=== PATIENT | female | born 1935 | race Caucasian/White ===

== ENCOUNTER 2018-02-04 13:18 | Outpatient (CLI) | payer MEDICARE | END 2018-02-04 13:19 | disposition home or self-care (01) | PROVIDERS: ATTEND Family Medicine | DX: R07.89 Other chest pain (principal) | CPT/HCPCS: 93017 ==

== ENCOUNTER 2018-02-15 08:43 | Outpatient (CLI) | payer MEDICARE ==
--- NOTE | 2018-02-15 11:50 | RAD ---
UPPER GI: HISTORY: Epigastric pain and dysphagia. EXPOSURE: 3.8 minutes of fluoroscopic time. 1453.3 mGy. FINDINGS: A double contrast upper GI was performed with air and barium. Esophageal motility is slightly delaye d without focal stricture or mucosal abnormality. The contrast passes through the gastroesophageal junction and into the stomach without difficulty. N o hiatal hernia is seen. The stomach is normal in size and appearance without a focal abnormality. No intrinsic mucosal lesio n is seen in the stomach. No extrinsic compression is seen on the stomach. The duodenum is normal i n appearance. No gastroesophageal reflux is seen during the examination. IMPRESSION: Presbyesophagus; otherwise, unremarkable examination. POS: [facility]
== END 2018-02-15 08:44 | disposition home or self-care (01) ==
LOC: RAD 08:43
PROVIDERS: ATTEND Surgery
DX: R10.13 Epigastric pain (principal); R13.10 Dysphagia, unspecified; K22.8 Other specified diseases of esophagus
CPT/HCPCS: 74247

== ENCOUNTER 2018-02-22 11:48 | Day surgery (SDC) | payer MEDICARE ==
[2018-02-19 11:12] VITALS: BMI 25.0
[2018-02-22 12:55] LABS: #Basophils 0.1 thou/uL (0.0-0.2); #Eosinphils 0.1 thou/uL (0.0-0.7); #Lymphocytes 1.7 thou/uL (1.20-3.40); #Monocytes 0.4 thou/uL (0.11-0.59); #Neutrophils 3.2 thou/uL (1.40-6.50); %Eosinophils 2.1 % (0.0-10.0); %Lymphocytes 31.4 % (21.0-51.0); %Monocytes 7.4 % (0.0-10.0); Hemoglobin 13.8 g/dL (12.0-16.0); Mean Corpuscular HGB CONC 33.8 g/dL (32.0-36.0); Mean Corpuscular Hemoglobin 32.8 pg (27.0-31.0); Mean Corpuscular Volume 97.1 fL (78.0-98.0); Mean Platelet Volume 9.4 fL (7.4-10.4); Platelet Count 161 thou/uL (130-400); RBC Distribution Width 11.2 % (11.5-14.5); Red Blood Cell (RBC) Count 4.22 mill/uL (4.20-5.40); White Blood Cell (WBC) Count 5.4 thou/uL (4.8-10.8)
[2018-02-22] MEDS ORDERED: CEFAZOLIN/Water 2 GM/20 ML SYRINGE ONE (12:58)
[2018-02-22 13:17] LABS: ALT (SGPT) 14 U/L (8-55); AST (SGOT) 21 U/L (5-34); Albumin 4.3 g/dL (3.4-4.8); Alkaline Phosphatase 43 U/L (40-150); Anion Gap 11 mmol/L (10-20); BUN (Urea Nitrogen) 17 mg/dL (9.8-20.1); Bilirubin, Total 0.8 mg/dL (0.2-1.2); Calc. Creatinine Clearance 60 mL/min (70-130); Calcium 10.1 mg/dL (7.8-10.44); Carbon Dioxide 25 mmol/L (23-31); Chloride 107 mmol/L (98-107); Estimated GFR-MDRD 71; Globulin 2.6 g/dL (2.4-3.5); Glucose 89 mg/dL (83-110); Potassium 3.7 mmol/L (3.5-5.1); Protein, Total 6.9 g/dL (6.0-8.3); Sodium 139 mmol/L (136-145)
[2018-02-22] MEDS ORDERED: Bupivacaine HCl 0.25%/Epi 0.0005/PF 10 ML VIAL FS ONE (13:58)
[2018-02-22] MEDS ORDERED: Fentanyl 100 MCG/2 ML VIAL ONE ×2 (14:02→15:24)
[2018-02-22] MEDS ORDERED: ePHEDrine/0.9% NaCl/PF SYRINGE 50 mg/10 ml ONE (14:25)
[2018-02-22] MEDS ORDERED: PROPOFOL 200 MG/20 ML VIAL ONE (14:25)
[2018-02-22] MEDS ORDERED: Dexamethasone 20 MG/5 ML VIAL ONE (14:25)
[2018-02-22] MEDS ORDERED: Lidocaine 1% PF 5 ML VIAL ONE (14:25)
[2018-02-22] MEDS ORDERED: Glycopyrrolate 0.2 MG/ML 5 ML SYRINGE ONE ×2 (14:25)
[2018-02-22] MEDS ORDERED: HYDROcodone/Acetaminophen 5/325 mg Tablet ONE (16:54)
--- NOTE | 2018-02-26 18:51 | PDOC.OP ---
Operative Note - Operative Note Operative Note: PROCEDURE: Laparoscopic cholecystectomy SURGEON: Sukhjinder Rob M.D. DATE OF PROCEDURE: 02/22/2018 PREOPERATIVE DIAGNOSIS: Cholelithiasis and cholecystitis POSTOPERATIVE DIAGNOSIS: Cholelithiasis and cholecystitis HISTORY: Patient with symptomatic cholelithiasis for which laparoscopic cholecystectomy was recommended. No bile duct dilatation or elevated LFTs were present. FINDINGS: Elongated white walled gallbladder containing gallstones. Chronic- appearing omental adhesions. PROCEDURE IN DETAIL: After informed consent was obtained and appropriate preoperative antibiotics were administered, the patient was taken to the operating room and placed in the supine position and general endotracheal anesthesia was administered. The stomach was decompressed with an OG tube and the abdomen was prepped and draped in standard sterile fashion. Local anesthesia was infused to the skin and subcutaneous tissues at the umbilical level. A transverse skin incision was made. The fascia was elevated and a Veress needle was placed into the abdominal cavity without difficulty. Opening pressure was less than 5 and carbon dioxide gas easily insufflated to an intra- abdominal pressure of 15, which the patient tolerated well. The Veress needle was withdrawn and a [place] port advanced under direct vision. The abdominal cavity was carefully examined. There was no evidence of Veress needle or of trocar injury. Local anesthesia was infused to the skin and subcutaneous tissues at the epigastric, right upper quadrant, and right lateral abdominal sites and trocars were placed under direct vision of the laparoscope. The fundus of the gallbladder was grasped and retracted superiorly. Some minimal omental adhesions were stripped inferiorly off of the gallbladder exposing the infundibulum. The infundibulum was grasped and retracted laterally. The serosa was stripped inferiorly at the level of the neck of the gallbladder exposing the cystic duct and artery which were traced clearly to their insertion in the gallbladder. Critical view of safety was obtained and the cystic duct and artery were clipped and divided between clips. The gallbladder was then dissected free of the gallbladder bed using hook electrocautery. Prior to complete removal of the gallbladder from the gallbladder bed, the area of the cystic duct and artery stumps was examined. The clips were in good position completely across these structures and there was no bleeding and no leakage of bile. The gallbladder was then placed into an EndoCatch bag and drawn out through the epigastric incision. The epigastric trocar was replaced and the operative site easily irrigated to clear. There was no significant bleeding or spillage of bile. The epigastric trocar was removed and the fascia closed under direct laparoscopic vision with a 0 Vicryl suture on a GraNee needle in a figure -of-eight manner with excellent technical result. The right upper quadrant and right lateral abdominal trocars were removed and hemostasis verified. Carbon dioxide gas was allowed to desufflate through the umbilical trocar which was then removed. The skin incisions were closed with 4-0 subcuticular Monocryl sutures and Dermabond dressings were placed. The patient was extubated and taken to the recovery room in good condition. There were no complications. ESTIMATED BLOOD LOSS: Minimal. SPECIMEN : Gallbladder and contents.
== END 2018-02-22 18:10 | disposition home or self-care (01) ==
LOC: SDC 11:48
PROVIDERS: ATTEND Surgery
PROC: 0FT44ZZ Resection of Gallbladder, Percutaneous Endoscopic Approach (ICD-10-PCS; principal; 2018-02-22)
DX: K80.10 Calculus of gallbladder with chronic cholecystitis without obstruction (principal); I10 Essential (primary) hypertension; Z79.899 Other long term (current) drug therapy
CPT/HCPCS: 80053; 85025; 88304; 96374; J1100; J2001; J2704; J3010

== ENCOUNTER 2018-09-07 11:38 | Outpatient (CLI) | payer MEDICARE ==
[2018-09-07 12:53] LABS: #Eosinphils 0.2 thou/uL (0.0-0.7); #Lymphocytes 2.1 thou/uL (1.20-3.40); #Monocytes 0.6 thou/uL (0.11-0.59); #Neutrophils 3.9 thou/uL (1.40-6.50); %Basophils 0.5 % (0.0-1.0); %Lymphocytes 30.8 % (21.0-51.0); %Monocytes 9.2 % (0.0-10.0); %Neutrophils 56.5 % (42.0-75.0); Hemoglobin 14.5 g/dL (12.0-16.0); Mean Corpuscular HGB CONC 32.8 g/dL (32.0-36.0); Mean Corpuscular Hemoglobin 32.3 pg (27.0-31.0); Mean Corpuscular Volume 98.7 fL (78.0-98.0); Mean Platelet Volume 9.1 fL (7.4-10.4); Platelet Count 194 thou/uL (130-400); RBC Distribution Width 11.5 % (11.5-14.5); Red Blood Cell (RBC) Count 4.48 mill/uL (4.20-5.40); White Blood Cell (WBC) Count 6.9 thou/uL (4.8-10.8)
[2018-09-07 12:58] LABS: Prothrombin Time 13.1 SEC (12.0-14.7)
[2018-09-07 13:10] LABS: WBC/HPF 0-3 HPF (0-3)
[2018-09-07 13:11] LABS: Bacteria/HPF Rare-Few HPF (None Seen); Hyaline Casts/LPF 0-3 HYALINE CAST LPF (0-3 Hyaline)
[2018-09-07 13:20] LABS: Anion Gap 10 mmol/L (10-20); BUN (Urea Nitrogen) 23 mg/dL (9.8-20.1); Calc. Creatinine Clearance 0 mL/min (70-130); Calcium 10.6 mg/dL (7.8-10.44); Carbon Dioxide 27 mmol/L (23-31); Chloride 106 mmol/L (98-107); Estimated GFR-MDRD 79; Glucose 83 mg/dL (83-110); Potassium 4.4 mmol/L (3.5-5.1); Sodium 139 mmol/L (136-145)
== END 2018-09-07 11:39 | disposition home or self-care (01) ==
LOC: LABBT 11:38
PROVIDERS: ATTEND Orthopaedic Surgery
DX: Z01.818 Encounter for other preprocedural examination (principal); M17.0 Bilateral primary osteoarthritis of knee
CPT/HCPCS: 80048; 81015; 85025; 85610; 86850; 86900; 86901; 87081; 93005; 93010

== ENCOUNTER 2018-09-13 05:31 | Inpatient (IN) | payer MEDICARE ==
[2018-09-13] MEDS ORDERED: Tranexamic Acid 1,000 MG/10 ML VIAL ONE ×2 (06:03→09:36)
[2018-09-13] MEDS ORDERED: CEFAZOLIN 2 GM/50 ML BAG ONE (06:03)
[2018-09-13] MEDS ORDERED: Lidocaine 1.5% w/Epi 1:200K 30 ML VIAL (Epid Use) ONE (06:19)
[2018-09-13] MEDS ORDERED: Fentanyl 100 MCG/2 ML VIAL ONE ×4 (06:19→10:12)
[2018-09-13] MEDS ORDERED: Midazolam HCl 2 mg/2 ml Vial ONE (06:19)
[2018-09-13] MEDS ORDERED: Bupivacaine PF 0.5% 30 ML VIAL ONE (06:28)
[2018-09-13] MEDS ORDERED: methylPREDNISolone Acetate 40 mg/ml Vial ONE (06:28)
[2018-09-13] MEDS ORDERED: Lidocaine 1% (PF) 30 ML VIAL ONE (06:28)
[2018-09-13] MEDS ORDERED: traMADol HCl 50 MG TAB PO PRN (07:18)
[2018-09-13] MEDS ORDERED: Ondansetron PF 4 MG/2 ML Vial IVP PRN ×2 (07:18→09:03)
[2018-09-13] MEDS ORDERED: Zolpidem Tartrate 5 MG TAB PO PRN (07:18)
[2018-09-13] MEDS ORDERED: Promethazine HCl 25 MG/ML VIAL IM PRN ×3 (07:18→09:10)
[2018-09-13] MEDS ORDERED: Ropivacaine HCl/PF 250 ML in Premix Bag 1 BAG NERVE BLCK SCH (07:18)
[2018-09-13] MEDS ORDERED: Fentanyl 100 MCG/2 ML VIAL SLOW IVP PRN (07:19)
[2018-09-13] MEDS ORDERED: Acetaminophen 325 MG TAB PO PRN (09:03)
[2018-09-13] MEDS ORDERED: Ondansetron HCl/PF 4 MG/2 ML Vial IVP PRN (09:10)
[2018-09-13] MEDS ORDERED: PACU-Morphine 4MG/ML VIAL SLOW IVP PRN (09:10)
[2018-09-13] MEDS ORDERED: HYDROmorphone 2 MG/ML VIAL SLOW IVP PRN (09:10)
[2018-09-13] MEDS ORDERED: Promethazine HCl 25 MG/ML VIAL SLOW IVP PRN (09:10)
[2018-09-13] MEDS ORDERED: CEFAZOLIN/Water 2 GM/20 ML SYRINGE SLOW IVP SCH (09:15)
[2018-09-13] MEDS ORDERED: Tranexamic Acid 1,000 MG in Sodium Chloride 0.9% 100 ML IVPB SCH (09:15)
--- NOTE | 2018-09-13 09:28 | OP ---
DATE OF PROCEDURE: 09/13/2018 METERS SUPERINTENDENT: Mario Calvert PA-C PREOPERATIVE DIAGNOSIS: Bilateral knee arthritis, left worse than right. POSTOPERATIVE DIAGNOSIS: Bilateral knee arthritis, left worse than right. PROCEDURES PERFORMED: 1. Left total knee replacement using [employer] pinless navigation. 2. Right knee corticosteroid injection. ANESTHESIA: General anesthetic. BLOOD LOSS: Minimal. COMPLICATIONS: None. DISPOSITION: She did go to Recovery Room in stable condition. IMPLANTS: To the left knee, triathlon total knee system, we used a size 4 cruciate retaining femur, we used a size 4 primary baseplate on the tibia, we used a 4 x 13 CS X3 tibial insert and a 29 x 9 asymmetric X3 patella. INDICATIONS: This is an 83-year-old female, who has had bilateral knee arthritic pain for years and at this time, wished to have her knee replaced. DESCRIPTION OF PROCEDURE: After all appropriate consent forms were explained and signed, she was taken back to the operative time and at this time was given a general anesthetic. Once the level of anesthesia was appropriate, we cleaned the right knee off with alcohol and injected 80 mg of Depo-Medrol with local. Band-Aid was applied. We then turned our attention to the left lower extremity. Once the level of anesthesia was appropriate, a well-padded tourniquet was placed on the left leg, and the leg was then prepped and draped in standard surgical fashion. The limb was exsanguinated and tourniquet taken up to 300 mmHg. Midline incision was made with a 10 blade down through the skin and subcutaneous tissue. Bovie electrocautery was used to coagulate any brisk venous bleeding. A new blade was used to make a medial parapatellar arthrotomy. Small subperiosteal release was performed medially and excess fat pad was removed. The knee was flexed up to gain access to the femur. The femur was navigated and distal femoral resection was made. Epicondylar access was used to align our sizing jig and this was pinned in place. We sized our femur to be a 4. 4:1 cutting block was applied and pinned. Anterior and posterior chamfer cuts were then made. We navigated out our proximal tibia and made our proximal tibial resection. Spreaders were used to remove any posterior osteophytes off the back of the femur as well as remaining meniscal tissue. A long alignment yann was then used to achieve correct rotation of our tibial baseplate and a size 4 primary baseplate on the tibia was chosen. This was pinned in place. We trialed the polyethylene and a 4 x 13 CS X3 tibial polyethylene gave us full extension and good stability throughout range of motion. Two towel clips and a saw were used to cut our patella. Three lug nuts were drilled and a 29 x 9 asymmetric X3 patella was trialed which sat nicely in the trochlear groove. We then drilled our femur and punched our tibia. All components were removed. The knee was thoroughly irrigated and dried. Cement was mixed into the cement gun on the back table. Components were then placed. The knee was held out in full extension until the cement had dried. All excess bone cement was removed. Multiple #2 Vicryl stitches as well as a Quill were used to close our extensor mechanism. 0 Quill followed by a running Monoderm was then used to close the skin. Surgicel glue was then used on the skin. Once this had dried, soft tissue dressing was applied to the limb, tourniquet was let down, and the toes pinked up nicely. The patient was then awakened and taken to the recovery room in stable condition. All counts were correct at the end of the case. The patient did receive preoperative IV antibiotics. The patient was injected with Exparel for postoperative pain relief. Job ID: [id number]
[2018-09-13] MEDS ORDERED: Acetaminophen 1,000 MG in Premix Bag 1 BAG IVPB SCH (10:15)
[2018-09-13 11:08] VITALS: BMI 24.3
[2018-09-13] MEDS ORDERED: Ondansetron ODT 4 MG TAB PO PRN (12:01)
[2018-09-13] MEDS ORDERED: Cepastat Lozenges 1 LOZ PO PRN (12:01)
[2018-09-13] MEDS ORDERED: Sodium Chloride 0.65% Nasal 44 ML BOT EA NARE PRN (12:01)
[2018-09-13] MEDS ORDERED: hydrALAZINE 20 MG/ML VIAL SLOW IVP PRN (12:01)
[2018-09-13] MEDS ORDERED: Eucerin (Mineral Oil/Petrolatum,White) 30 gm Jar TOP PRN (12:01)
[2018-09-13] MEDS: Sodium Chloride 0.9% 1,000 ML IV SCH ×2 (12:01→16:16)
[2018-09-13] MEDS ORDERED: Artificial Tears 18 DROP/0.9 ML EA EYE PRN (12:01)
[2018-09-13] MEDS ORDERED: Diabetic Tussin 200 MG/10 ML UDCUP PO PRN (12:01)
[2018-09-13] MEDS: Ketorolac Tromethamine 30 MG/ML VIAL IVP SCH ×3 (12:03→23:32)
--- NOTE | 2018-09-13 12:04 | PDOC.PN ---
- Subjective Encounter Start Date: 09/14/18 (SEEN ON 09/14/18) Encounter Start Time: 15:15 -: old records requested/rev Patient seen and examined. No new complaints. No overnight events - Objective Resuscitation Status - Order Detail: 09/13/18 12:01 Resuscitation Status Routine Resuscitation Status: FULL: Full Resuscitation MAR Reviewed: Yes Vital Signs & Weight: Vital Signs (12 hours) Temp Pulse Resp BP Pulse Ox 09/13/18 10:50 97.3 F L 54 L 16 129/72 99 Weight Weight 146 lb Result Diagrams: 09/14/18 04:19 Phys Exam - Physical Examination Constitutional: NAD HEENT: PERRLA, moist MMs, sclera anicteric Neck: no JVD, supple Respiratory: no wheezing, no rales, no rhonchi Cardiovascular: RRR, no significant murmur, no rub Gastrointestinal: soft, non-tender, no distention, positive bowel sounds Musculoskeletal: no edema, pulses present Neurological: non-focal, normal sensation, moves all 4 limbs Lymphatic: no nodes Psychiatric: normal affect, A&O x 3 Skin: no rash, normal turgor Dx/Plan (1) Status post total right knee replacement Code(s): Z96.651 - PRESENCE OF RIGHT ARTIFICIAL KNEE JOINT Status: Acute (2) Dyslipidemia Code(s): E78.5 - HYPERLIPIDEMIA, UNSPECIFIED Status: Chronic (3) Hypertension Code(s): I10 - ESSENTIAL (PRIMARY) HYPERTENSION Status: Chronic (4) Osteoarthritis Code(s): M19.90 - UNSPECIFIED OSTEOARTHRITIS, UNSPECIFIED SITE Status: Chronic - Plan cont current plan of care, plan discussed w/ family, PT/OT * medication reviewed as below * symptomatic treatment * home medication reconciled * nerve block as per anesthesia * PT/OT as per [facility] protocol * pain control * code status full code * will follow. Review of Systems - Review of Systems ENT: negative: Ear Pain, Ear Discharge, Nose Pain, Nose Discharge, Nose Congestion, Mouth Pain, Mouth Swelling, Throat Pain, Throat Swelling, Other Respiratory: negative: Cough, Dry, Shortness of Breath, Hemoptysis, SOB with Excertion, Pleuritic Pain, Sputum, Wheezing Cardiovascular: negative: chest pain, palpitations, orthopnea, paroxysmal nocturnal dyspnea, edema, light headedness, other Gastrointestinal: negative: Nausea, Vomiting, Abdominal Pain, Diarrhea, Constipation, Melena, Hematochezia, Other Genitourinary: negative: Dysuria, Frequency, Incontinence, Hematuria, Retention , Other Musculoskeletal: negative: Neck Pain, Shoulder Pain, Arm Pain, Back Pain, Hand Pain, Leg Pain, Foot Pain, Other - Medications/Allergies Allergies/Adverse Reactions: Allergies Allergy/AdvReac Type Severity Reaction Status Date / Time No Known Allergies Allergy Verified 09/02/18 13:20 Medications: Current Medications Acetaminophen (Tylenol) 650 mg PO Q4H PRN PRN Reason: Headache/Fever or Pain Hydrocodone Bitart/Acetaminophen ([place] 10/325) 1 tab PO Q4H PRN PRN Reason: Pain (1-3) Hydrocodone Bitart/Acetaminophen ([place] 10/325) 2 tab PO Q4H PRN PRN Reason: PAIN (4-6) Artificial Tears (Tears Naturale) 2 drop EA EYE PRN PRN PRN Reason: Dry Eyes Aspirin (Ecotrin) 81 mg PO BID [facility] Clopidogrel Bisulfate (Plavix) 75 mg PO DAILY [facility] Cyclobenzaprine HCl (Flexeril) 10 mg PO ASDIR PRN PRN Reason: Muscle Spasm Diphenhydramine HCl (Benadryl) 25 mg PO Q6H PRN PRN Reason: Itching Famotidine (Pepcid) 20 mg PO BID [facility] Fentanyl (Sublimaze) 50 mcg SLOW IVP Q1H PRN PRN Reason: breakthrough pain Fentanyl (Pacu-Sublimaze) 50 mcg SLOW IVP Q10MIN PRN PRN Reason: Moderate to Severe Pain (6-10) Stop: 09/13/18 12:10 Ferrous Gluconate (Fergon) 324 mg PO BID-[facility] Lisinopril/HCTZ (Prinizide 10-12.5) 0.5 tab PO DAILY [facility] Hydromorphone HCl (Pacu-Dilaudid) 0.5 mg SLOW IVP Q10MIN PRN PRN Reason: Moderate to Severe Pain (6-10) Stop: 09/13/18 12:10 Ropivacaine 250 ml/ Device 250 mls @ 10 mls/hr NERVE BLCK INF [facility] Sodium Chloride (Normal Saline 0.9%) 1,000 mls @ 100 mls/hr IV .Q10H RAUL Vancomycin HCl 1 gm/ Device 200 mls @ 200 mls/hr IVPB 2000 RAUL Stop: 09/13/18 20:59 Cefazolin Sodium/Dextrose 2 gm (/ Device) 50 mls @ 100 mls/hr IVPB Q8HR [facility] Stop: 09/13/18 22:29 Iron/Minerals/Multivitamins (Theragran M) 1 tab PO DAILY [facility] Ketorolac Tromethamine (Toradol) 15 mg IVP Q6HR [facility] Stop: 09/15/18 06:01 Morphine Sulfate (Pacu-Morphine) 4 mg SLOW IVP ONE PRN PRN Reason: Moderate to Severe Pain (6-10) Stop: 09/13/18 12:10 Ondansetron HCl (Zofran) 4 mg IVP Q6H PRN PRN Reason: Nausea/Vomiting Ondansetron HCl (Pacu-Zofran) 4 mg IVP ONE PRN PRN Reason: Nausea/Vomiting Stop: 09/13/18 12:10 Promethazine HCl (Phenergan) 12.5 mg IM Q4H PRN PRN Reason: Nausea/Vomiting Promethazine HCl (Pacu-Phenergan) 6.25 mg SLOW IVP ONE PRN PRN Reason: Nausea/Vomiting Stop: 09/13/18 12:10 Promethazine HCl (Pacu-Phenergan) 6.25 mg IM ONE PRN PRN Reason: Nausea/Vomiting Stop: 09/13/18 12:10 Senna/Docusate Sodium (Senokot S) 2 tab PO BID [facility] Sodium Chloride (Flush - Normal Saline) 10 ml IVF PRN PRN PRN Reason: Saline Flush Throat Lozenges (Cepastat Lozenges) 1 marlen PO Q2H PRN PRN Reason: Sore Throat Tramadol HCl (Ultram) 50 mg PO Q6H PRN PRN Reason: Mild Pain (1-3) Tramadol HCl (Ultram) 100 mg PO Q6H PRN PRN Reason: Moderate Pain 4-6 Zolpidem Tartrate (Ambien) 5 mg PO HSPRN PRN PRN Reason: Insomnia
[2018-09-13] MEDS: HYDROcodone/Acetaminophen 10/325 mg Tablet PO PRN ×2 (12:10→16:20)
[2018-09-13] MEDS: CEFAZOLIN 2 GM/50 ML-DEXTROSE 2 GM in Premix Bag 1 BAG IVPB SCH ×2 (14:30→22:12)
[2018-09-13] MEDS ORDERED: Bupivacaine HCl 0.5%/Epinephrine 1:200,000/PF 30 ml Vial ONE (15:10)
[2018-09-13] MEDS ORDERED: Ropivacaine 0.5% HCl/PF (150 MG/30 ML VIAL) ONE (15:10)
[2018-09-13] MEDS ORDERED: Ropivacaine 0.2% HCl/PF (40 MG/20 ML VIAL) ONE (15:10)
[2018-09-13] MEDS ORDERED: Ondansetron PF 4 MG/2 ML Vial ONE (15:39)
[2018-09-13] MEDS ORDERED: PROPOFOL 200 MG/20 ML VIAL ONE (15:39)
[2018-09-13] MEDS ORDERED: Lidocaine 1% PF 5 ML VIAL ONE (15:39)
[2018-09-13] MEDS ORDERED: Dexamethasone 20 MG/5 ML VIAL ONE (15:39)
[2018-09-13] MEDS ORDERED: Ketorolac Tromethamine 30 MG/ML VIAL ONE (15:39)
[2018-09-13] MEDS ORDERED: ePHEDrine 50 MG/ML VIAL ONE (15:39)
[2018-09-13] MEDS ORDERED: Vancomycin HCl 1 GM in Premix Bag 1 BAG IVPB SCH (20:00)
[2018-09-13] MEDS: Famotidine 20 MG TAB PO SCH (20:06)
[2018-09-13] MEDS: Zolpidem Tartrate 5 MG TAB PO PRN (20:06)
[2018-09-13] MEDS: Aspirin 81 mg Enteric Coated Tablet PO SCH (20:06)
[2018-09-13] MEDS: traMADol HCl 50 MG TAB PO PRN (20:10)
[2018-09-13] MEDS: diphenhydrAMINE 25 MG CAP PO PRN (23:31)
[2018-09-14 04:57] LABS: Hemoglobin 11.7 g/dL (12.0-16.0); Mean Corpuscular HGB CONC 33.4 g/dL (32.0-36.0); Mean Corpuscular Hemoglobin 32.8 pg (27.0-31.0); Mean Corpuscular Volume 98.3 fL (78.0-98.0); Mean Platelet Volume 9.3 fL (7.4-10.4); Platelet Count 162 thou/uL (130-400); RBC Distribution Width 11.4 % (11.5-14.5); Red Blood Cell (RBC) Count 3.58 mill/uL (4.20-5.40); White Blood Cell (WBC) Count 11.4 thou/uL (4.8-10.8)
[2018-09-14] MEDS: Sodium Chloride 0.9% 1,000 ML IV SCH ×2 (06:35→13:44)
[2018-09-14] MEDS: Ketorolac Tromethamine 30 MG/ML VIAL IVP SCH ×4 (06:40→23:36)
[2018-09-14] MEDS: traMADol HCl 50 MG TAB PO PRN ×2 (08:30→19:25)
[2018-09-14] MEDS: Multivitamin W/ Minerals 1 TAB PO SCH (08:32)
[2018-09-14] MEDS: Cyclobenzaprine 10 MG TAB PO SCH (08:32)
[2018-09-14] MEDS: Lisinopril/Hydrochlorothiazide 10 mg/12.5 mg Tablet PO SCH (08:32)
[2018-09-14] MEDS: Famotidine 20 MG TAB PO SCH ×2 (08:32→21:01)
[2018-09-14] MEDS: Senokot S 8.6-50 MG TAB PO SCH ×2 (08:32→21:01)
[2018-09-14] MEDS: Clopidogrel Bisulfate 75 MG TAB PO SCH (08:33)
[2018-09-14] MEDS: Aspirin 81 mg Enteric Coated Tablet PO SCH (08:35)
[2018-09-14] MEDS: Ferrous Gluconate 324 MG TAB PO SCH ×2 (08:35→17:22)
--- NOTE | 2018-09-14 11:00 | PDOC.PN ---
- Subjective Encounter Start Date: 09/14/18 Encounter Start Time: 08:35 -: old records requested/rev Patient seen and examined. No new complaints. No overnight events - Objective Resuscitation Status - Order Detail: 09/13/18 12:01 Resuscitation Status Routine Resuscitation Status: FULL: Full Resuscitation MAR Reviewed: Yes Vital Signs & Weight: Vital Signs (12 hours) Temp Pulse Resp BP Pulse Ox 09/14/18 08:32 67 09/14/18 07:44 98.1 F 67 16 107/66 95 09/14/18 04:20 98 F 67 16 101/60 94 L 09/14/18 00:08 98.2 F 62 16 108/57 L 97 Weight Weight 146 lb I&O: 09/13/18 09/14/18 09/15/18 06:59 06:59 06:59 Intake Total 3090 Output Total 2100 Balance 990 Result Diagrams: 09/14/18 04:19 Phys Exam - Physical Examination Constitutional: NAD HEENT: PERRLA, moist MMs, sclera anicteric Neck: no JVD, supple Respiratory: no wheezing, no rales, no rhonchi Cardiovascular: RRR, no significant murmur, no rub Gastrointestinal: soft, non-tender, no distention, positive bowel sounds Musculoskeletal: no edema, pulses present right knee with dressing, nerve block+ Neurological: non-focal, normal sensation, moves all 4 limbs Lymphatic: no nodes Psychiatric: normal affect, A&O x 3 Skin: no rash, normal turgor Dx/Plan (1) Status post total right knee replacement Code(s): Z96.651 - PRESENCE OF RIGHT ARTIFICIAL KNEE JOINT Status: Acute (2) Dyslipidemia Code(s): E78.5 - HYPERLIPIDEMIA, UNSPECIFIED Status: Chronic (3) Hypertension Code(s): I10 - ESSENTIAL (PRIMARY) HYPERTENSION Status: Chronic (4) Osteoarthritis Code(s): M19.90 - UNSPECIFIED OSTEOARTHRITIS, UNSPECIFIED SITE Status: Chronic - Plan cont current plan of care, PT/OT * medication reviewed as below * symptomatic treatment * continue PT/OT * nerve block as per anesthesia * aspirin for DVT prophylaxis * pain controlled. Review of Systems - Review of Systems ENT: negative: Ear Pain, Ear Discharge, Nose Pain, Nose Discharge, Nose Congestion, Mouth Pain, Mouth Swelling, Throat Pain, Throat Swelling, Other Respiratory: negative: Cough, Dry, Shortness of Breath, Hemoptysis, SOB with Excertion, Pleuritic Pain, Sputum, Wheezing Cardiovascular: negative: chest pain, palpitations, orthopnea, paroxysmal nocturnal dyspnea, edema, light headedness, other Gastrointestinal: negative: Nausea, Vomiting, Abdominal Pain, Diarrhea, Constipation, Melena, Hematochezia, Other Genitourinary: negative: Dysuria, Frequency, Incontinence, Hematuria, Retention , Other Musculoskeletal: negative: Neck Pain, Shoulder Pain, Arm Pain, Back Pain, Hand Pain, Leg Pain, Foot Pain, Other - Medications/Allergies Allergies/Adverse Reactions: Allergies Allergy/AdvReac Type Severity Reaction Status Date / Time No Known Allergies Allergy Verified 09/02/18 13:20 Medications: Current Medications Acetaminophen (Tylenol) 650 mg PO Q4H PRN PRN Reason: Headache/Fever or Pain Hydrocodone Bitart/Acetaminophen ([place] 10/325) 1 tab PO Q4H PRN PRN Reason: Pain (1-3) Last Admin: 09/13/18 16:20 Dose: 1 tab Hydrocodone Bitart/Acetaminophen ([place] 10/325) 2 tab PO Q4H PRN PRN Reason: PAIN (4-6) Artificial Tears (Tears Naturale) 2 drop EA EYE PRN PRN PRN Reason: Dry Eyes Aspirin (Ecotrin) 81 mg PO BID [facility] Last Admin: 09/14/18 08:35 Dose: Not Given Clopidogrel Bisulfate (Plavix) 75 mg PO DAILY [facility] Last Admin: 09/14/18 08:33 Dose: 75 mg Cyclobenzaprine HCl (Flexeril) 10 mg PO DAILY [facility] Last Admin: 09/14/18 08:32 Dose: 10 mg Diphenhydramine HCl (Benadryl) 25 mg PO Q6H PRN PRN Reason: Itching Last Admin: 09/13/18 23:31 Dose: 25 mg Famotidine (Pepcid) 20 mg PO BID [facility] Last Admin: 09/14/18 08:32 Dose: 20 mg Fentanyl (Sublimaze) 50 mcg SLOW IVP Q1H PRN PRN Reason: breakthrough pain [facility] Last Admin: 09/14/18 08:35 Dose: Not Given Guaifenesin (Robitussin Sf) 200 mg PO Q4H PRN PRN Reason: Cough Lisinopril/HCTZ (Prinizide 10-12.5) 0.5 tab PO DAILY [facility] Last Admin: 09/14/18 08:32 Dose: Not Given Hydralazine HCl (Apresoline) 10 mg SLOW IVP Q4H PRN PRN Reason: SBP > 180 and HR < 70 Ropivacaine 250 ml/ Device 250 mls @ 10 mls/hr NERVE BLCK INF [facility] Last Admin: 09/14/18 09:52 Dose: 250 mls Sodium Chloride (Normal Saline 0.9%) 1,000 mls @ 100 mls/hr IV .Q10H [facility] Last Admin: 09/14/18 06:35 Dose: Not Given Iron/Minerals/Multivitamins (Theragran M) 1 tab PO DAILY [facility] Last Admin: 09/14/18 08:32 Dose: 1 tab Ketorolac Tromethamine (Toradol) 15 mg IVP Q6HR [facility] Stop: 09/15/18 06:01 Last Admin: 09/14/18 06:40 Dose: 15 mg Mineral Oil/White Petrolatum (Eucerin Cream) 0 gm TOP BIDPRN PRN PRN Reason: Dry Skin Ondansetron HCl (Zofran) 4 mg IVP Q6H PRN PRN Reason: Nausea/Vomiting Last Admin: 09/13/18 18:43 Dose: 4 mg Ondansetron HCl (Zofran Odt) 4 mg PO Q6H PRN PRN Reason: Nausea/Vomiting Last Admin: 09/14/18 00:24 Dose: 4 mg Promethazine HCl (Phenergan) 12.5 mg IM Q4H PRN PRN Reason: Nausea/Vomiting Senna/Docusate Sodium (Senokot S) 2 tab PO BID [facility] Last Admin: 09/14/18 08:32 Dose: 2 tab Sodium Chloride (Flush - Normal Saline) 10 ml IVF PRN PRN PRN Reason: Saline Flush Sodium Chloride ([place] Nasal [place] 0.65%) 0 ml EA NARE QIDPRN PRN PRN Reason: Nasal Congestion Throat Lozenges (Cepastat Lozenges) 1 marlen PO Q2H PRN PRN Reason: Sore Throat Tramadol HCl (Ultram) 50 mg PO Q6H PRN PRN Reason: Mild Pain (1-3) Tramadol HCl (Ultram) 100 mg PO Q6H PRN PRN Reason: Moderate Pain 4-6 Last Admin: 09/14/18 08:30 Dose: 100 mg Zolpidem Tartrate (Ambien) 5 mg PO HSPRN PRN PRN Reason: Insomnia Last Admin: 09/13/18 20:06 Dose: 5 mg
[2018-09-14] MEDS: HYDROcodone/Acetaminophen 10/325 mg Tablet PO PRN ×2 (12:52→21:01)
[2018-09-14] MEDS: Zolpidem Tartrate 5 MG TAB PO PRN (21:01)
[2018-09-15] MEDS: Sodium Chloride 0.9% 1,000 ML IV SCH (01:57)
[2018-09-15] MEDS: Ketorolac Tromethamine 30 MG/ML VIAL IVP SCH (05:26)
[2018-09-15 05:58] LABS: Hemoglobin 10.8 g/dL (12.0-16.0); Mean Corpuscular HGB CONC 33.1 g/dL (32.0-36.0); Mean Corpuscular Hemoglobin 32.6 pg (27.0-31.0); Mean Corpuscular Volume 98.5 fL (78.0-98.0); Mean Platelet Volume 9.3 fL (7.4-10.4); Platelet Count 150 thou/uL (130-400); RBC Distribution Width 11.6 % (11.5-14.5); Red Blood Cell (RBC) Count 3.32 mill/uL (4.20-5.40); White Blood Cell (WBC) Count 7.7 thou/uL (4.8-10.8)
[2018-09-15] MEDS: Senokot S 8.6-50 MG TAB PO SCH ×2 (08:10→20:43)
[2018-09-15] MEDS: Multivitamin W/ Minerals 1 TAB PO SCH (08:10)
[2018-09-15] MEDS: Ferrous Gluconate 324 MG TAB PO SCH ×2 (08:10→16:19)
[2018-09-15] MEDS: Clopidogrel Bisulfate 75 MG TAB PO SCH (08:10)
[2018-09-15] MEDS: Aspirin Chewable 81 MG TAB PO SCH (08:11)
[2018-09-15] MEDS: Famotidine 20 MG TAB PO SCH ×2 (08:11→20:43)
[2018-09-15] MEDS: Cyclobenzaprine 10 MG TAB PO SCH (08:11)
[2018-09-15 09:24] LABS: Anion Gap 9 mmol/L (10-20); BUN (Urea Nitrogen) 20 mg/dL (9.8-20.1); Calc. Creatinine Clearance 71 mL/min (70-130); Calcium 8.8 mg/dL (7.8-10.44); Carbon Dioxide 23 mmol/L (23-31); Chloride 108 mmol/L (98-107); Estimated GFR-MDRD 89; Glucose 93 mg/dL (83-110); Magnesium 2.2 mg/dL (1.6-2.6); Potassium 3.9 mmol/L (3.5-5.1); Sodium 136 mmol/L (136-145)
--- NOTE | 2018-09-15 10:36 | EKG ---
Test Reason : Blood Pressure : / mmHG Vent. Rate : 136 BPM Atrial Rate : 147 BPM P-R Int : 000 ms QRS Dur : 074 ms QT Int : 290 ms P-R-T Axes : 000 066 032 degrees QTc Int : 436 ms Atrial fibrillation with rapid ventricular response Abnormal ECG When compared with ECG of 07-SEP-2018 12:11, Atrial fibrillation has replaced Sinus rhythm Vent. rate has increased BY [address] Kelly HERNÁNDEZ ([id number]) on 09/15/2018 10:36:33 AM Referred By: FROILAN Confirmed By:DR. Kelly HERNÁNDEZ
--- NOTE | 2018-09-15 10:48 | PDOC.PN ---
- Subjective Encounter Start Date: 09/15/18 Encounter Start Time: 08:40 -: old records requested/rev pt c/o palpitation, dizziness, she is found with afib with RVR, per pt started after this morning coffee intake Patient seen and examined. No overnight events - Objective Resuscitation Status - Order Detail: 09/13/18 12:01 Resuscitation Status Routine Resuscitation Status: FULL: Full Resuscitation MAR Reviewed: Yes Vital Signs & Weight: Vital Signs (12 hours) Temp Pulse Resp BP Pulse Ox 09/15/18 10:22 97.8 F 140 H 18 142/109 H 93 L 09/15/18 09:53 143 H 22 H 141/105 H 94 L 09/15/18 08:05 98.1 F 136 H 22 H 133/81 95 09/15/18 03:30 98.4 F 60 17 125/66 94 L 09/14/18 23:45 98.5 F 67 17 116/61 95 Weight Admit Weight 146 lb Weight 146 lb I&O: 09/14/18 09/15/18 09/16/18 06:59 06:59 06:59 Intake Total 3090 1570 Output Total 2100 175 Balance 990 1395 Result Diagrams: 09/15/18 05:39 09/15/18 05:39 EKG Reviewed by me: Yes (afib with RVR) Phys Exam - Physical Examination Constitutional: NAD HEENT: PERRLA, moist MMs, sclera anicteric Neck: no JVD, supple Respiratory: no wheezing, no rales, no rhonchi Cardiovascular: no significant murmur, irregular Gastrointestinal: soft, non-tender, no distention, positive bowel sounds Musculoskeletal: no edema, pulses present left knee with dressing, nerve block+ Neurological: non-focal, normal sensation, moves all 4 limbs Lymphatic: no nodes Psychiatric: normal affect, A&O x 3 Skin: no rash, normal turgor Dx/Plan (1) Atrial fibrillation with RVR Code(s): I48.91 - UNSPECIFIED ATRIAL FIBRILLATION Status: Acute (2) Status post total right knee replacement Code(s): Z96.651 - PRESENCE OF RIGHT ARTIFICIAL KNEE JOINT Status: Acute (3) Dyslipidemia Code(s): E78.5 - HYPERLIPIDEMIA, UNSPECIFIED Status: Chronic (4) Hypertension Code(s): I10 - ESSENTIAL (PRIMARY) HYPERTENSION Status: Chronic (5) Osteoarthritis Code(s): M19.90 - UNSPECIFIED OSTEOARTHRITIS, UNSPECIFIED SITE Status: Chronic (6) Anemia, macrocytic Code(s): D53.9 - NUTRITIONAL ANEMIA, UNSPECIFIED Status: Chronic - Plan cont current plan of care, plan discussed w/ family, PT/OT * transfer to tele * cardiology consult * get Echo today * do serial cardiac enzyme * cancel discharge today * will give lovenox one time and nursing home anticoagulation will defer to cardiology * will start cardizem PO for now * and at tele will load with digoxin if needed * medication reviewed as below * symptomatic treatment * nerve block as per anesthesia * PT/OT as per [facility] protocol * pain controlled * pepcid for GI prophylaxis. Review of Systems - Review of Systems ENT: negative: Ear Pain, Ear Discharge, Nose Pain, Nose Discharge, Nose Congestion, Mouth Pain, Mouth Swelling, Throat Pain, Throat Swelling, Other Respiratory: negative: Cough, Dry, Shortness of Breath, Hemoptysis, SOB with Excertion, Pleuritic Pain, Sputum, Wheezing Cardiovascular: light headedness. negative: chest pain, palpitations, orthopnea , paroxysmal nocturnal dyspnea, edema, other Genitourinary: negative: Dysuria, Frequency, Incontinence, Hematuria, Retention , Other Musculoskeletal: negative: Neck Pain, Shoulder Pain, Arm Pain, Back Pain, Hand Pain, Leg Pain, Foot Pain, Other - Medications/Allergies Allergies/Adverse Reactions: Allergies Allergy/AdvReac Type Severity Reaction Status Date / Time No Known Allergies Allergy Verified 09/02/18 13:20 Medications: Current Medications Acetaminophen (Tylenol) 650 mg PO Q4H PRN PRN Reason: Headache/Fever or Pain Hydrocodone Bitart/Acetaminophen ([place] 10/325) 1 tab PO Q4H PRN PRN Reason: Pain (1-3) Last Admin: 09/14/18 21:01 Dose: 1 tab Hydrocodone Bitart/Acetaminophen ([place] 10/325) 2 tab PO Q4H PRN PRN Reason: PAIN (4-6) Artificial Tears (Tears Naturale) 2 drop EA EYE PRN PRN PRN Reason: Dry Eyes Aspirin (Aspirin Chewable) 81 mg PO DAILY [facility] Last Admin: 09/15/18 08:11 Dose: 81 mg Clopidogrel Bisulfate (Plavix) 75 mg PO DAILY [facility] Last Admin: 09/15/18 08:10 Dose: 75 mg Cyclobenzaprine HCl (Flexeril) 10 mg PO DAILY [facility] Last Admin: 09/15/18 08:11 Dose: 10 mg Diltiazem HCl (Cardizem) 30 mg PO ACHS [facility] Diltiazem HCl (Cardizem) 30 mg PO NOW [facility] Diphenhydramine HCl (Benadryl) 25 mg PO Q6H PRN PRN Reason: Itching Last Admin: 09/13/18 23:31 Dose: 25 mg Enoxaparin Sodium (Lovenox) 0 mg SC NOW [facility] Famotidine (Pepcid) 20 mg PO BID [facility] Last Admin: 09/15/18 08:11 Dose: 20 mg Fentanyl (Sublimaze) 50 mcg SLOW IVP Q1H PRN PRN Reason: breakthrough pain Ferrous Gluconate (Fergon) 324 mg PO BID-[facility] Last Admin: 09/15/18 08:10 Dose: 324 mg Guaifenesin (Robitussin Sf) 200 mg PO Q4H PRN PRN Reason: Cough Lisinopril/HCTZ (Prinizide 10-12.5) 0.5 tab PO DAILY [facility] Last Admin: 09/14/18 08:32 Dose: Not Given Hydralazine HCl (Apresoline) 10 mg SLOW IVP Q4H PRN PRN Reason: SBP > 180 and HR < 70 Ropivacaine 250 ml/ Device 250 mls @ 10 mls/hr NERVE BLCK INF [facility] Last Admin: 09/14/18 09:52 Dose: 250 mls Iron/Minerals/Multivitamins (Theragran M) 1 tab PO DAILY [facility] Last Admin: 09/15/18 08:10 Dose: 1 tab Mineral Oil/White Petrolatum (Eucerin Cream) 0 gm TOP BIDPRN PRN PRN Reason: Dry Skin Ondansetron HCl (Zofran) 4 mg IVP Q6H PRN PRN Reason: Nausea/Vomiting Last Admin: 09/13/18 18:43 Dose: 4 mg Ondansetron HCl (Zofran Odt) 4 mg PO Q6H PRN PRN Reason: Nausea/Vomiting Last Admin: 09/14/18 00:24 Dose: 4 mg Phosphorus (Kphos Neutral) [facility] Promethazine HCl (Phenergan) 12.5 mg IM Q4H PRN PRN Reason: Nausea/Vomiting Senna/Docusate Sodium (Senokot S) 2 tab PO BID [facility] Last Admin: 09/15/18 08:10 Dose: 2 tab Sodium Chloride (Flush - Normal Saline) 10 ml IVF PRN PRN PRN Reason: Saline Flush Sodium Chloride ([place] Nasal [place] 0.65%) 0 ml EA NARE QIDPRN PRN PRN Reason: Nasal Congestion Throat Lozenges (Cepastat Lozenges) 1 marlen PO Q2H PRN PRN Reason: Sore Throat Tramadol HCl (Ultram) 50 mg PO Q6H PRN PRN Reason: Mild Pain (1-3) Tramadol HCl (Ultram) 100 mg PO Q6H PRN PRN Reason: Moderate Pain 4-6 Last Admin: 09/14/18 19:25 Dose: 100 mg Zolpidem Tartrate (Ambien) 5 mg PO HSPRN PRN PRN Reason: Insomnia Last Admin: 09/13/18 20:06 Dose: 5 mg
[2018-09-15] MEDS: HYDROcodone/Acetaminophen 10/325 mg Tablet PO PRN ×3 (12:01→20:44)
[2018-09-15] MEDS: Lisinopril/Hydrochlorothiazide 10 mg/12.5 mg Tablet PO SCH (12:05)
[2018-09-15] MEDS ORDERED: Enoxaparin Sodium 80 MG/0.8 ML SYRINGE SC SCH (12:30)
[2018-09-15] MEDS: K-Phos Neutral 250 MG TAB PO SCH ×2 (14:46→18:12)
--- NOTE | 2018-09-15 16:22 | CON ---
DATE OF CONSULTATION: HISTORY OF PRESENT ILLNESS: This patient is a pleasant 83-year-old woman who presents for evaluation of dizziness and palpitations. The patient has a previous history of palpitations. She states whenever she eats excess caffeine, she notices her heart rate is elevated. The patient was admitted, underwent knee surgery. She subsequently developed palpitations. The patient denied having any chest discomfort. PAST MEDICAL HISTORY: Hypertension and TIA. PAST SURGICAL HISTORY: Appendectomy, tonsillectomy, cholecystectomy. MEDICATIONS: 1. Lisinopril/hydrochlorothiazide 10/12.5 half a tablet daily. 2. Plavix 75 daily. 3. Aspirin 81 daily. REVIEW OF SYSTEMS: Ten point system otherwise unremarkable. FAMILY HISTORY: PHYSICAL EXAMINATION: VITAL SIGNS: Elderly woman, in no acute distress. Blood pressure 136/83. NECK: No jugular venous distention. LUNGS: Clear to auscultation. HEART: Regular rate and rhythm. Normal S1, S2. ABDOMEN: Nondistended. EXTREMITIES: Showed no edema. SKIN: Warm and dry. NEUROLOGIC: Nonfocal. VASCULAR: Radial pulses are 2+. LABORATORY RESULTS: White blood cell count 7.7, hemoglobin 10.8, hematocrit 32.7, platelets are 150. Sodium 136, potassium 3.9, chloride 108, bicarbonate 23, BUN 20, creatinine is 0.64. Troponin 0.012. Her EKG 1. Atrial fibrillation with rapid ventricular response. 2. Normal sinus rhythm with a normal ECG. IMPRESSION: 1. New onset atrial fibrillation. 2. Hypertension. 3. Status post knee surgery. This patient developed paroxysmal atrial fibrillation. She has a CHADS-VASc score of 4. We would recommend the patient take a beta-tono therapy and NOAC. The patient has had symptoms suggestive of atrial fibrillation. We will follow this patient with you through her hospitalization. Job ID: [id number] [facility]
[2018-09-15] MEDS: diphenhydrAMINE 25 MG CAP PO PRN (20:43)
[2018-09-15] MEDS: Zolpidem Tartrate 5 MG TAB PO PRN (20:44)
[2018-09-16] MEDS: HYDROcodone/Acetaminophen 10/325 mg Tablet PO PRN ×3 (00:53→12:15)
[2018-09-16 06:08] LABS: #Eosinphils 0.3 thou/uL (0.0-0.7); #Lymphocytes 2.6 thou/uL (1.20-3.40); #Monocytes 0.9 thou/uL (0.11-0.59); #Neutrophils 4.5 thou/uL (1.40-6.50); %Basophils 0.5 % (0.0-1.0); %Lymphocytes 31.4 % (21.0-51.0); %Monocytes 10.8 % (0.0-10.0); %Neutrophils 53.4 % (42.0-75.0); Hemoglobin 12.1 g/dL (12.0-16.0); Mean Corpuscular HGB CONC 32.9 g/dL (32.0-36.0); Mean Corpuscular Hemoglobin 32.6 pg (27.0-31.0); Mean Corpuscular Volume 98.9 fL (78.0-98.0); Mean Platelet Volume 9.8 fL (7.4-10.4); Platelet Count 169 thou/uL (130-400); RBC Distribution Width 11.7 % (11.5-14.5); Red Blood Cell (RBC) Count 3.71 mill/uL (4.20-5.40); White Blood Cell (WBC) Count 8.4 thou/uL (4.8-10.8)
[2018-09-16 06:28] LABS: ALT (SGPT) 41 U/L (8-55); AST (SGOT) 47 U/L (5-34); Albumin 3.3 g/dL (3.4-4.8); Alkaline Phosphatase 54 U/L (40-150); Anion Gap 8 mmol/L (10-20); BUN (Urea Nitrogen) 15 mg/dL (9.8-20.1); Bilirubin, Total 0.7 mg/dL (0.2-1.2); Calc. Creatinine Clearance 64 mL/min (70-130); Calcium 9.3 mg/dL (7.8-10.44); Carbon Dioxide 28 mmol/L (23-31); Chloride 105 mmol/L (98-107); Estimated GFR-MDRD 79; Globulin 2.3 g/dL (2.4-3.5); Glucose 93 mg/dL (83-110); Potassium 3.9 mmol/L (3.5-5.1); Protein, Total 5.6 g/dL (6.0-8.3); Sodium 137 mmol/L (136-145)
[2018-09-16] MEDS: Cyclobenzaprine 10 MG TAB PO SCH (07:56)
[2018-09-16] MEDS: Senokot S 8.6-50 MG TAB PO SCH (07:58)
[2018-09-16] MEDS: Ferrous Gluconate 324 MG TAB PO SCH (07:59)
[2018-09-16] MEDS: Lisinopril/Hydrochlorothiazide 10 mg/12.5 mg Tablet PO SCH (07:59)
[2018-09-16] MEDS: Multivitamin W/ Minerals 1 TAB PO SCH (07:59)
[2018-09-16] MEDS: Famotidine 20 MG TAB PO SCH (07:59)
[2018-09-16] MEDS: Aspirin Chewable 81 MG TAB PO SCH (07:59)
[2018-09-16] MEDS: K-Phos Neutral 250 MG TAB PO SCH ×2 (08:00→12:15)
[2018-09-16] MEDS ORDERED: Clopidogrel Bisulfate 75 MG TAB PO SCH (09:00)
[2018-09-16] MEDS ORDERED: Aspirin 81 mg Enteric Coated Tablet PO SCH (09:00)
--- NOTE | 2018-09-16 09:32 | PDOC.PN ---
- Subjective Encounter Start Date: 09/16/18 Encounter Start Time: 07:40 Patient seen and examined. No new complaints. No overnight events - Objective Resuscitation Status - Order Detail: 09/13/18 12:01 Resuscitation Status Routine Resuscitation Status: FULL: Full Resuscitation MAR Reviewed: Yes Vital Signs & Weight: Vital Signs (12 hours) Temp Pulse Resp BP Pulse Ox 09/16/18 07:44 97.5 F L 72 16 146/79 H 97 09/16/18 03:18 98.8 F 61 16 153/72 H 93 L Weight Admit Weight 146 lb Weight 146 lb I&O: 09/15/18 09/16/18 09/17/18 06:59 06:59 06:59 Intake Total 1570 1240 Output Total 175 Balance 1395 1240 Result Diagrams: 09/16/18 05:26 09/16/18 05:26 EKG Reviewed by me: Yes (nsr) Phys Exam - Physical Examination Constitutional: NAD HEENT: PERRLA, moist MMs, sclera anicteric Neck: no JVD, supple Respiratory: no wheezing, no rales, no rhonchi Cardiovascular: RRR, no significant murmur, no rub Gastrointestinal: soft, non-tender, no distention, positive bowel sounds Musculoskeletal: no edema, pulses present Neurological: non-focal, normal sensation, moves all 4 limbs Lymphatic: no nodes Psychiatric: normal affect, A&O x 3 Skin: no rash, normal turgor Dx/Plan (1) Status post total right knee replacement Code(s): Z96.651 - PRESENCE OF RIGHT ARTIFICIAL KNEE JOINT Status: Acute (2) Dyslipidemia Code(s): E78.5 - HYPERLIPIDEMIA, UNSPECIFIED Status: Chronic (3) Hypertension Code(s): I10 - ESSENTIAL (PRIMARY) HYPERTENSION Status: Chronic (4) Osteoarthritis Code(s): M19.90 - UNSPECIFIED OSTEOARTHRITIS, UNSPECIFIED SITE Status: Chronic (5) Atrial fibrillation with RVR Code(s): I48.91 - UNSPECIFIED ATRIAL FIBRILLATION Status: Resolved (6) Anemia, macrocytic Code(s): D53.9 - NUTRITIONAL ANEMIA, UNSPECIFIED Status: Chronic - Plan cont current plan of care, plan discussed w/ family, PT/OT * medication reviewed as below * symptomatic treatment * see my discharge summery * stable for discharge. Review of Systems - Review of Systems ENT: negative: Ear Pain, Ear Discharge, Nose Pain, Nose Discharge, Nose Congestion, Mouth Pain, Mouth Swelling, Throat Pain, Throat Swelling, Other Respiratory: negative: Cough, Dry, Shortness of Breath, Hemoptysis, SOB with Excertion, Pleuritic Pain, Sputum, Wheezing Cardiovascular: negative: chest pain, palpitations, orthopnea, paroxysmal nocturnal dyspnea, edema, light headedness, other Gastrointestinal: negative: Nausea, Vomiting, Abdominal Pain, Diarrhea, Constipation, Melena, Hematochezia, Other Genitourinary: negative: Dysuria, Frequency, Incontinence, Hematuria, Retention , Other Musculoskeletal: negative: Neck Pain, Shoulder Pain, Arm Pain, Back Pain, Hand Pain, Leg Pain, Foot Pain, Other - Medications/Allergies Allergies/Adverse Reactions: Allergies Allergy/AdvReac Type Severity Reaction Status Date / Time No Known Allergies Allergy Verified 09/02/18 13:20 Medications: Current Medications Acetaminophen (Tylenol) 650 mg PO Q4H PRN PRN Reason: Headache/Fever or Pain Hydrocodone Bitart/Acetaminophen ([place] 10/325) 1 tab PO Q4H PRN PRN Reason: Pain (1-3) Last Admin: 09/14/18 21:01 Dose: 1 tab Hydrocodone Bitart/Acetaminophen ([place] 10/325) 2 tab PO Q4H PRN PRN Reason: PAIN (4-6) Last Admin: 09/16/18 05:31 Dose: 2 tab Artificial Tears (Tears Naturale) 2 drop EA EYE PRN PRN PRN Reason: Dry Eyes Aspirin (Ecotrin) 81 mg PO DAILY [facility] Clopidogrel Bisulfate (Plavix) 75 mg PO DAILY [facility] Last Admin: 09/16/18 07:59 Dose: 75 mg Cyclobenzaprine HCl (Flexeril) 10 mg PO DAILY [facility] Last Admin: 09/16/18 07:56 Dose: Not Given Diphenhydramine HCl (Benadryl) 25 mg PO Q6H PRN PRN Reason: Itching Last Admin: 09/15/18 20:43 Dose: 25 mg Famotidine (Pepcid) 20 mg PO BID [facility] Last Admin: 09/16/18 07:59 Dose: 20 mg Fentanyl (Sublimaze) 50 mcg SLOW IVP Q1H PRN PRN Reason: breakthrough pain Ferrous Gluconate (Fergon) 324 mg PO BID-[facility] Last Admin: 09/16/18 07:59 Dose: 324 mg Guaifenesin (Robitussin Sf) 200 mg PO Q4H PRN PRN Reason: Cough Lisinopril/HCTZ (Prinizide 10-12.5) 0.5 tab PO DAILY [facility] Last Admin: 09/16/18 07:59 Dose: 0.5 tab Hydralazine HCl (Apresoline) 10 mg SLOW IVP Q4H PRN PRN Reason: SBP > 180 and HR < 70 Ropivacaine 250 ml/ Device 250 mls @ 10 mls/hr NERVE BLCK INF [facility] Last Admin: 09/14/18 09:52 Dose: 250 mls Iron/Minerals/Multivitamins (Theragran M) 1 tab PO DAILY [facility] Last Admin: 09/16/18 07:59 Dose: 1 tab Metoprolol Succinate (Toprol Xl) 25 mg PO 2100 [facility] Last Admin: 09/15/18 20:43 Dose: 25 mg Mineral Oil/White Petrolatum (Eucerin Cream) 0 gm TOP BIDPRN PRN PRN Reason: Dry Skin Ondansetron HCl (Zofran) 4 mg IVP Q6H PRN PRN Reason: Nausea/Vomiting Last Admin: 09/13/18 18:43 Dose: 4 mg Ondansetron HCl (Zofran Odt) 4 mg PO Q6H PRN PRN Reason: Nausea/Vomiting Last Admin: 09/14/18 00:24 Dose: 4 mg Phosphorus (Kphos Neutral) [facility] Last Admin: 09/16/18 08:00 Dose: 250 mg Promethazine HCl (Phenergan) 12.5 mg IM Q4H PRN PRN Reason: Nausea/Vomiting Senna/Docusate Sodium (Senokot S) 2 tab PO BID [facility] Last Admin: 09/16/18 07:58 Dose: 2 tab Sodium Chloride (Flush - Normal Saline) 10 ml IVF PRN PRN PRN Reason: Saline Flush Sodium Chloride ([place] Nasal [place] 0.65%) 0 ml EA NARE QIDPRN PRN PRN Reason: Nasal Congestion Throat Lozenges (Cepastat Lozenges) 1 marlen PO Q2H PRN PRN Reason: Sore Throat Tramadol HCl (Ultram) 50 mg PO Q6H PRN PRN Reason: Mild Pain (1-3) Tramadol HCl (Ultram) 100 mg PO Q6H PRN PRN Reason: Moderate Pain 4-6 Last Admin: 09/14/18 19:25 Dose: 100 mg Zolpidem Tartrate (Ambien) 5 mg PO HSPRN PRN PRN Reason: Insomnia Last Admin: 09/15/18 20:44 Dose: 5 mg
--- NOTE | 2018-09-16 10:28 | DIS ---
DATE OF ADMISSION: 09/13/2018 DATE OF DISCHARGE: 09/16/2018 PRIMARY CARE PHYSICIAN: Dr. Yasmin Pérez. DISCHARGE DISPOSITION: Home. PRIMARY DISCHARGE DIAGNOSES: 1. Status post right total knee replacement. 2. Atrial fibrillation with rapid ventricular response, converted to sinus rhythm. SECONDARY DISCHARGE DIAGNOSES: Osteoarthritis, hypertension, dyslipidemia, macrocytic anemia, osteoarthritis. PRIMARY PROCEDURE/OPERATION: Right total knee replacement by Dr. Rodríguez. RADIOLOGICAL INVESTIGATION: None. SIGNIFICANT LABORATORY DATA: WBC 8.4, hemoglobin 12.1, platelet 169. Sodium 137, creatinine 0.71. LFT normal. Cardiac enzyme negative. TSH 1.29. DISCHARGE MEDICATIONS: 1. Toprol-XL 25 mg p.o. daily. 2. Aspirin 81 mg p.o. b.i.d. for DVT prophylaxis. After that, the patient will continue Plavix 75 mg p.o. daily. 3. Prinzide 10/12.5 half tablet daily. 4. [place] 10 one or two tablets q.6 hourly p.r.n. 5. Toprol-XL 25 mg p.o. daily. CONTRAINDICATION: None. CODE STATUS: Full code. INPATIENT ROLL TABLE OPERATOR: Dr. Locke was consulted while in the hospital. Primary team was Dr. Rodríguez. TEST RESULTS PENDING ON DISCHARGE: None. ALLERGIES: NO KNOWN DRUG ALLERGIES. DISCHARGE PLAN: Posthospital, the patient will follow up with Dr. Rodríguez as instructed. She will follow up with Dr. Ruiz and primary care physician as instructed. HOSPITAL COURSE: An 83-year-old female, who was electively admitted by Dr. Rodríguez for right total knee replacement, which was done on September 13, 2018. Postoperatively, the patient was at [facility]. Sound Team was consulted for medical comanagement. The patient's medical problems remained stable. Initially, she was having low blood pressure that is why she required IV fluid. We hold all her blood pressure medications. While in hospital, she was found with atrial fibrillation which was transient. The patient meets criteria for chronic anticoagulation therapy, but at this point, the patient has decided not to start on any anticoagulation therapy until she discuss with Cardiology, because she had previously bad reaction with chronic anticoagulation and that is why she prefers to continue only aspirin and Plavix for now. We started Toprol-XL and she has converted to sinus rhythm. The patient is medically stable for discharge today. Please see my progress note from today for further detail. Job ID: [id number]
[2018-09-16 12:22] VITALS: BP 153/75; TEMP 98
--- NOTE | 2018-09-17 08:56 | EKG ---
Test Reason : Blood Pressure : / mmHG Vent. Rate : 066 BPM Atrial Rate : 066 BPM P-R Int : 190 ms QRS Dur : 076 ms QT Int : 364 ms P-R-T Axes : 045 032 017 degrees QTc Int : 381 ms Normal sinus rhythm Normal ECG When compared with ECG of 15-SEP-2018 08:59, Sinus rhythm has replaced Atrial fibrillation Vent. rate has decreased BY 70 BPM T wave amplitude has decreased in Anterior leads Confirmed by DR. Kelly HERNÁNDEZ ([id number]) on 09/17/2018 8:55:52 AM Referred By: IERO Confirmed By:DR. Kelly HERNÁNDEZ
== END 2018-09-16 13:20 | disposition home health service (06) | DRG 470 ==
LOC: SDC 05:31 → SJJU 09:03 → 2NO 09-15 13:28
PROVIDERS: ADMIT Orthopaedic Surgery; ATTEND Orthopaedic Surgery
PROC: 0SRD0J9 Replacement of Left Knee Joint with Synthetic Substitute, Cemented, Open Approach (ICD-10-PCS; principal; 2018-09-13)
PROC: 3E0233Z Introduction of Anti-inflammatory into Muscle, Percutaneous Approach (ICD-10-PCS; 2018-09-13)
DX: M17.0 Bilateral primary osteoarthritis of knee (principal); E78.5 Hyperlipidemia, unspecified; I10 Essential (primary) hypertension; I48.91 Unspecified atrial fibrillation; D53.9 Nutritional anemia, unspecified; Z90.49 Acquired absence of other specified parts of digestive tract; Z86.73 Personal history of transient ischemic attack (TIA), and cerebral infarction without residual deficits; Z90.89 Acquired absence of other organs; Z79.82 Long term (current) use of aspirin; Z79.02 Long term (current) use of antithrombotics/antiplatelets
CPT/HCPCS: 36415; 80048; 80053; 83735; 84100; 84443; 84484; 85025; 85027; 93005; 93010; C1713; C1776; J0131; J0670; J1030; J1100; J1650; J1885; J2001; J2250; J2405; J2704; J2795; J3010; J3370; J3490; Q0162; Q0163; S0020

== ENCOUNTER 2019-05-05 12:03 | Emergency (ER) | payer MEDICARE ==
[2019-05-05 12:33] LABS: Clarity Turbid (Clear); Squamous Epithelial 0-3 HPF (0-3)
[2019-05-05 12:44] LABS: Leukocyte Unable to Interpret Leu/uL (Negative); Nitrite Unable to Interpret (Negative); Protein, Urine (Dipstick) Unable to Interpret mg/dL (Neg-Trace)
[2019-05-05 12:45] LABS: Bilirubin Unable to Interpret (Negative); Blood, Urine Unable to Interpret (Negative); Glucose, Urine (Dipstick) Unable to Interpret mg/dL (Negative); Urobilinogen UNABLE TO INTERPRET mg/dL (Less than 2)
[2019-05-05 12:46] LABS: Bacteria/HPF 2+ HPF (None Seen); RBC/HPF Greater than 50 HPF (0-3)
[2019-05-05] MEDS ORDERED: Ciprofloxacin 500 MG TAB ONE (13:49)
== END 2019-05-05 13:55 | disposition home or self-care (01) ==
LOC: ERS 12:03
DX: N30.01 Acute cystitis with hematuria (principal); Z86.73 Personal history of transient ischemic attack (TIA), and cerebral infarction without residual deficits; I10 Essential (primary) hypertension
CPT/HCPCS: 87086; 99283

== ENCOUNTER 2023-03-14 07:10 | Observation (INO) | payer MEDICARE ==
[2023-03-14 10:41] VITALS: BMI 25.6
[2023-03-14] MEDS ORDERED: Ondansetron PF 4 MG/2 ML Vial IVP PRN (12:01)
[2023-03-14] MEDS ORDERED: Ondansetron ODT 4 MG TAB PO PRN (12:01)
[2023-03-14] MEDS ORDERED: dilTIAZem 125 MG in Sodium Chloride 0.9% 100 ML IVPB SCH (12:15)
[2023-03-14 13:10] LABS: Magnesium 2.2 mg/dL (1.6-2.6)
[2023-03-14] MEDS ORDERED: dilTIAZem CD 180 MG CAP PO SCH (14:00)
[2023-03-14] MEDS: Acetaminophen 325 MG TAB PO PRN ×2 (17:52→22:04)
[2023-03-14] MEDS: Apixaban 5 MG TAB PO SCH (20:37)
[2023-03-15 04:14] LABS: #Basophils 0.1 thou/uL (0.0-0.2); #Eosinphils 0.2 thou/uL (0.0-0.7); #Monocytes 0.9 thou/uL (0.11-0.59); #Neutrophils 4.7 thou/uL (1.40-6.50); %Basophils 0.5 % (0.0-1.0); %Eosinophils 2.5 % (0.0-10.0); %Lymphocytes 36.5 % (21.0-51.0); %Monocytes 9.6 % (0.0-10.0); %Neutrophils 50.6 % (42.0-75.0); Hematocrit 43.1 % (36.0-47.0); Hemoglobin 14.7 g/dL (12.0-16.0); Mean Corpuscular HGB CONC 34.1 g/dL (32.0-36.0); Mean Corpuscular Hemoglobin 32.5 pg (27.0-31.0); Mean Corpuscular Volume 95.1 fl (78.0-98.0); Platelet Count 204 10x3/uL (130-400); RBC Distribution Width 13.1 % (11.5-14.5); Red Blood Cell (RBC) Count 4.53 mill/uL (4.20-5.40); White Blood Cell (WBC) Count 9.2 10x3/uL (4.8-10.8)
[2023-03-15 04:40] LABS: Anion Gap 14 mmol/L (10-20); BUN (Urea Nitrogen) 20 mg/dL (9.8-20.1); Calc. Creatinine Clearance 52 mL/min (70-130); Calcium 10.1 mg/dL (7.8-10.44); Carbon Dioxide 21 mmol/L (23-31); Chloride 104 mmol/L (98-107); Estimated GFR 70; Glucose 106 mg/dL (83-110); Potassium 3.5 mmol/L (3.5-5.1); Sodium 135 mmol/L (136-145)
[2023-03-15] MEDS: Apixaban 5 MG TAB PO SCH (08:37)
[2023-03-15] MEDS ORDERED: dilTIAZem CD 180 MG CAP PO SCH (09:00)
[2023-03-15] MEDS ORDERED: Clopidogrel Bisulfate 75 MG TAB PO SCH (09:00)
[2023-03-15 11:13] VITALS: TEMP 97.1
[2023-03-15 15:45] VITALS: BP 109/76
== END 2023-03-15 18:32 | disposition home or self-care (01) ==
LOC: 2NO 07:10
PROVIDERS: ADMIT Family Medicine; ATTEND Family Medicine
DX: I48.91 Unspecified atrial fibrillation (principal); I08.1 Rheumatic disorders of both mitral and tricuspid valves; I10 Essential (primary) hypertension; E87.6 Hypokalemia; Z79.01 Long term (current) use of anticoagulants; Z79.82 Long term (current) use of aspirin; Z79.899 Other long term (current) drug therapy; Z90.89 Acquired absence of other organs; Z90.49 Acquired absence of other specified parts of digestive tract; Z96.659 Presence of unspecified artificial knee joint; Z91.030 Bee allergy status; Z86.73 Personal history of transient ischemic attack (TIA), and cerebral infarction without residual deficits
CPT/HCPCS: 80048; 83735; 84443; 85025; 93005; 93306; G0378 ×2; 36415; 93010

== ENCOUNTER 2023-03-17 23:47 | Emergency (ER) | payer MEDICARE ==
[2023-03-18 00:56] LABS: #Basophils 0.1 thou/uL (0.0-0.2); #Eosinphils 0.3 thou/uL (0.0-0.7); #Monocytes 0.9 thou/uL (0.11-0.59); #Neutrophils 4.5 thou/uL (1.40-6.50); %Basophils 0.6 % (0.0-1.0); %Eosinophils 3.3 % (0.0-10.0); %Lymphocytes 30.5 % (21.0-51.0); %Monocytes 10.8 % (0.0-10.0); %Neutrophils 54.6 % (42.0-75.0); Hematocrit 41.5 % (36.0-47.0); Hemoglobin 14.1 g/dL (12.0-16.0); Mean Corpuscular Hemoglobin 32.2 pg (27.0-31.0); Mean Corpuscular Volume 94.7 fl (78.0-98.0); Mean Platelet Volume 12.2 fL (7.4-10.4); Platelet Count 203 10x3/uL (130-400); RBC Distribution Width 12.8 % (11.5-14.5); Red Blood Cell (RBC) Count 4.38 mill/uL (4.20-5.40); White Blood Cell (WBC) Count 8.3 10x3/uL (4.8-10.8)
[2023-03-18 01:09] LABS: ALT (SGPT) 16 U/L (8-55); AST (SGOT) 19 U/L (5-34); Albumin 4.2 g/dL (3.4-4.8); Alkaline Phosphatase 48 U/L (40-110); Anion Gap 9 mmol/L (10-20); BUN (Urea Nitrogen) 17 mg/dL (9.8-20.1); Bilirubin, Total 0.5 mg/dL (0.2-1.2); Calc. Creatinine Clearance 0 mL/min (70-130); Calcium 10.6 mg/dL (7.8-10.44); Carbon Dioxide 25 mmol/L (23-31); Chloride 103 mmol/L (98-107); Estimated GFR 75; Glucose 102 mg/dL (83-110); Potassium 3.4 mmol/L (3.5-5.1); Protein, Total 7.2 g/dL (5.8-8.1); Sodium 134 mmol/L (136-145)
== END 2023-03-18 02:00 | disposition home or self-care (01) ==
LOC: ERS 23:47
DX: R00.2 Palpitations (principal); I10 Essential (primary) hypertension; I48.91 Unspecified atrial fibrillation; Z86.73 Personal history of transient ischemic attack (TIA), and cerebral infarction without residual deficits
CPT/HCPCS: 80053; 83880; 84484; 85025; 93005